=== PATIENT | male | born 1985 | race African-American/Black ===

== ENCOUNTER 2020-10-28 09:58 | Emergency (ER) | payer MEDICAID, OTHER ==
[~2020-10-28] VITALS: Ht 180.3 cm; Wt 104.0 kg
[2020-10-28] MEDS ORDERED: FLUORESCEIN SODIUM 1MG/STRIP RIGHTEYE ONE (10:30)
[2020-10-28] MEDS ORDERED: TETRACAINE 0.5% OPHTH DROPS 4ML RIGHTEYE ONE (10:30)
[2020-10-28 12:01] VITALS: BP 157/91
== END 2020-10-28 12:01 | disposition home or self-care (01) ==
LOC: ER 09:58
DX: T60.2X1A Toxic effect of other insecticides, accidental (unintentional), initial encounter (principal); T26.61XA Corrosion of cornea and conjunctival sac, right eye, initial encounter; Y93.89 Activity, other specified; Y92.018 Other place in single-family (private) house as the place of occurrence of the external cause
CPT/HCPCS: 99283